=== PATIENT | male | born 1940 | race Caucasian/White ===

== ENCOUNTER → 2019-06-25 16:21 | Outpatient (CLI) | payer MEDICARE, BC ==
[2019-06-25 16:47] LABS: HEMATOCRIT 46.7 % (42.0-54.0); HEMOGLOBIN 16.4 g/dL (13.5-17.5); LYMPHOCYTES 29.6 % (15-50); MCH 33.4 pg (26.0-34.0); MCHC 35.1 g/dL (31.0-37.0); MCV 95.1 fL (80.0-100.0); NEUTROPHILS 60.8 % (40-80); PLATELET COUNT 148 10x3/uL (130-400); RBC 4.91 10x6/uL (4.20-6.10); RDW 14.1 % (11.5-14.5); WBC 5.9 10x3/uL (4.8-10.8)
[2019-06-25 17:51] LABS: ERYTHROCYTE SEDIMENTATION RATE 2 mm/hr (0-20)
== END | disposition home or self-care (01) ==
LOC: D.LABREF 16:21
PROVIDERS: ATTEND Clinical Nurse Specialist Family Health
DX: M25.561 Pain in right knee (principal)

== ENCOUNTER 2019-06-26 10:31 | Inpatient (IN) | payer MEDICARE, BC ==
[~2019-06-26] VITALS: Ht 175.3 cm; Wt 97.5 kg
[2019-07-30] MEDS ORDERED: BREO ELLIPTA 21 EACH (10:26)
[2019-07-30] MEDS ORDERED: VENTOLIN HFA INH (10:28)
[2019-07-30] MEDS ORDERED: RESTORIL15 MG PO (10:28)
[2019-07-30] MEDS ORDERED: NAPROXEN250 MG PO (10:29)
[2019-07-30] MEDS ORDERED: CENTRUM MEN'S1 EACH PO (10:29)
[2019-07-30] MEDS ORDERED: MERIBIN5 MG PO (10:29)
[2019-07-30] MEDS ORDERED: ACETAMINOPHEN325 MG PO (10:29)
[2019-07-30] MEDS ORDERED: APPLE CIDER VINEGAR PO (10:30)
[2019-07-30] MEDS ORDERED: TUMERIC CURCUMIN PO (10:30)
[2019-07-30] MEDS ORDERED: GLUCOSAMINE HC500 MG PO (10:31)
[2019-07-30] MEDS ORDERED: CHONDROITIN PO (10:31)
[2019-07-30] MEDS ORDERED: CLARITIN 10 MG10 MG PO (10:31)
[2019-07-30 12:01] LABS: BASOPHILS 0.8 % (0-2); EOSINOPHILS 3.9 % (0-7); HEMATOCRIT 50.1 % (42.0-54.0); HEMOGLOBIN 17.2 g/dL (13.5-17.5); IMMATURE GRANULOCYTES 0.3 % (0-5); LYMPHOCYTES 27.3 % (15-50); MCH 33.7 pg (26.0-34.0); MCHC 34.3 g/dL (31.0-37.0); MEAN PLATELET VOLUME 10.1 fL (7.4-10.4); MONOCYTES 9.1 % (2-11); NEUTROPHILS 58.6 % (40-80); PLATELET COUNT 166 10x3/uL (130-400); RBC 5.11 10x6/uL (4.20-6.10); RDW 13.3 % (11.5-14.5); WBC 7.9 10x3/uL (4.8-10.8)
[2019-07-30 12:13] LABS: CALC OSMOLALITY 287 mosm/kg (275-300); CALCIUM 9.3 mg/dL (8.5-10.1); CARBON DIOXIDE 31.9 mmol/L (21.0-32.0); CHLORIDE - SERUM 105 mmol/L (98-107); POTASSIUM - SERUM 4.5 mmol/L (3.5-5.1); SODIUM 143 mmol/L (136-145); UREA NITROGEN 26 mg/dL (7-18); eGFR NON AFRICAN AMERICAN 77 mL/min (90-120)
[2019-07-30 12:16] LABS: GLUCOSE 60 mg/dL (74-106)
[2019-07-30 12:19] LABS: APTT 29.7 SECONDS (22.8-39.4); INR 0.96 (0.85-1.17); PROTIME 12.8 SECONDS (11.6-15.0)
[2019-07-30 12:39] LABS: APPEARANCE CLEAR (CLEAR); COLOR DK YELLOW (YELLOW); GLUCOSE 500 mg/dL (NEGATIVE); KETONE SMALL mg/dL (NEGATIVE); NITRITE NEGATIVE (NEGATIVE); PROTEIN TRACE mg/dL (NEGATIVE); SPECIFIC GRAVITY 1.025 (1.005-1.020)
[2019-07-30 12:40] LABS: BACTERIA FEW /hpf (NEGATIVE); BILIRUBIN NEGATIVE (NEGATIVE); EPITHELIAL CELLS OCC /hpf (0-5); RED CELLS - URINE NONE SEEN /hpf (0-5); WHITE CELLS - URINE 0-5 /hpf (NEGATIVE)
[2019-08-04 10:10] VITALS: BP 142/78; Ht 175.3 cm; Wt 97.5 kg
[2019-08-04 10:24] LABS: APPEARANCE CLEAR (CLEAR); COLOR YELLOW (YELLOW)
[2019-08-04 10:25] LABS: BILIRUBIN NEGATIVE (NEGATIVE); GLUCOSE NEGATIVE (NEGATIVE); KETONE NEGATIVE (NEGATIVE); NITRITE NEGATIVE (NEGATIVE); PROTEIN NEGATIVE (NEGATIVE); UROBILINOGEN NORMAL (NORMAL)
[2019-08-04 10:29] LABS: BACTERIA FEW /hpf (NEGATIVE); EPITHELIAL CELLS NSEEN /hpf (0-5); RED CELLS - URINE NONE SEEN /hpf (0-5); WHITE CELLS - URINE 0-5 /hpf (NEGATIVE)
--- NOTE | 2019-08-04 10:39 | NUR ---
SURGERY CANCELLED PER DR. BACA. IV DC'D WITH TIP INTACT.
== END 2019-08-04 10:40 | disposition home or self-care (01) | DRG 561 ==
LOC: D.SDCHOLD 08-04 08:15
PROVIDERS: ADMIT Orthopaedic Surgery; ATTEND Orthopaedic Surgery
DX: T84.032A Mechanical loosening of internal right knee prosthetic joint, initial encounter (principal); M25.561 Pain in right knee; M25.562 Pain in left knee; Z53.9 Procedure and treatment not carried out, unspecified reason

== ENCOUNTER 2019-09-18 10:46 | Day surgery (SDC) | payer MEDICARE, BC ==
[2019-09-16 09:32] LABS: HEMATOCRIT 48.2 % (42.0-54.0); HEMOGLOBIN 16.5 g/dL (13.5-17.5); MCH 33.6 pg (26.0-34.0); MCHC 34.2 g/dL (31.0-37.0); MCV 98.2 fL (80.0-100.0); MEAN PLATELET VOLUME 10.2 fL (7.4-10.4); RBC 4.91 10x6/uL (4.20-6.10); RDW 13.4 % (11.5-14.5); WBC 7.2 10x3/uL (4.8-10.8)
[~2019-09-18] VITALS: Ht 175.3 cm; Wt 96.6 kg
[2019-09-18 09:23] VITALS: BP 137/94; Ht 175.3 cm; Wt 96.6 kg
[~2019-09-18 10:46] MED LIST: ACETAMINOPHEN325 MG PO; AMOXICILLIN500 M1 PO; APPLE CIDER VINEGAR PO; BREO ELLIPTA 21 EACH; CENTRUM MEN'S1 EACH PO; CHONDROITIN PO; CIPRO500 MG PO; CLARITIN 10 MG10 MG PO; GLUCOSAMINE HC500 MG PO; MERIBIN5 MG PO; NAPROXEN250 MG PO; RESTORIL15 MG PO; TUMERIC CURCUMIN PO; VENTOLIN HFA INH
--- NOTE | 2019-09-18 19:10 | NUR ---
1126-REC'D FROM SURGERY. DROWSY EASILY AROUSED. DENIES PAIN. VSS. IV PATENT TO RIGHT ARM AT O. REVIEWED DISCHARGE CRITERIA. CL IN EASY REACH
--- NOTE | 2019-09-18 19:15 | NUR ---
1330-2 WAY 26 FR DIAZ PATENT DRAINING ISBELL RED URINE BY GRAVITY. VSS. PAIN 11/29. VSS. CL IN EASY REACH. IV PATENT AT O
--- NOTE | 2019-09-18 19:15 | NUR ---
1215-B AND O SUPPOSITORY PER RECTUM PER MD ORDERS.
--- NOTE | 2019-09-18 19:17 | NUR ---
1600-REMOVED IV FROM RIGHT ARM WITH CATH INTACT,DISPOSED INTO SHARPS. COVERED SITE WITH GUAZE,SECURED WITH MEDIPORE TAPE
--- NOTE | 2019-09-18 19:17 | NUR ---
1533-NORCO 5/325MG 1 BY MOUTH FOR PAIN
--- NOTE | 2019-09-18 19:18 | NUR ---
1614-REVIEWED POST OPERATIVE INSTRUCTIONS,DIAZ CARE AND FOLLOW UP APPOINTMENT. VERBALIZED UNDERSTANDING
--- NOTE | 2019-09-18 19:19 | NUR ---
1629-ESCORTED OUT VIA W/C WITH DAUGHTER AND LAW AWAITING TO DRIVE HOME
--- NOTE | 2019-09-19 09:16 | OP ---
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 IPSS equals 4. Quality of life equals 2. SARABJIT 40 gram prostate. PROCEDURE: UroLift times 7 units deployed with 6 holding. FINDINGS: Bilateral lateral lobe obstruction with a tight bladder neck. Single ureteral orifices bilaterally. Inflamed bladder mucosa from previous cystitis. No bladder tumors. ESTIMATED BLOOD LOSS: Minimal. CLINICAL HISTORY: This is a 79-year-old male referred by Dr. Fleming for recurrent urinary tract infections. His urine is growing enterococcus. He is due to have right knee replacement surgery, but this cannot be done with his urinary tract infections. He has obstructive BPH. He comes now to have the UroLift procedure done. He is not allergic to any medications. He was given Levaquin IV taxonomist to the OR. DESCRIPTION OF PROCEDURE: The patient was given IV sedation. He was placed in the lithotomy position. The scope was introduced and no penile urethral strictures were seen. He does have obstructive lateral lobes as well as a tight bladder neck. A 1.5 cm distal to the bladder neck at the anterolateral sulcus, I attempted to put one unit on the left side. This unit did not seem to fire. It was discarded and another unit was fired in this position and it helped. Another unit was used in the right anterolateral sulcus 1.5 cm distal to the bladder neck. Then, we went to the verumontanum and placed 1 unit on each side at the anterolateral sulcus. There was still obstruction around the bladder neck. At the mid urethral level looking anterior to posterior, 1.5 cm to the bladder neck distal to the bladder neck, I fired 1 unit on each side. This opened up the bladder neck in the box configuration. The prostate is extremely vasculature. I placed a Sensor wire into the bladder, and over the wire, we inserted a 16-[place] Valdez catheter with a little shell tribe tip. Once the Valdez catheter balloon was inflated with 10 cc of sterile water, we removed the wire entirely. The Valdez catheter was put to bag drainage. I will see him in followup next week to remove the Valdez catheter for a voiding trial. TRANSINT:[id number] Voice Confirmation ID: [id number] DOCUMENT ID: [id number] OPERATIVE REPORT [id number] NICK ESTRADA, CAROLYN Lim MD at 0916 CC: [id number] DICTATION DATE: 09/18/19 1127 TECH ED TEACHER: 09/18/19 1849 [facility] 09/18/19 [place] [id number]
== END 2019-09-18 16:30 | disposition home or self-care (01) ==
LOC: D.OPS 10:46 → D.PAN 11:05 → D.OPS 11:05 → D.PAN 11:30 → D.OPS 16:30
PROVIDERS: Anesthesiology; ATTEND Urology
DX: N40.1 Benign prostatic hyperplasia with lower urinary tract symptoms (principal); N13.8 Other obstructive and reflux uropathy; Z87.440 Personal history of urinary (tract) infections; J45.909 Unspecified asthma, uncomplicated; N30.90 Cystitis, unspecified without hematuria; I10 Essential (primary) hypertension; K21.9 Gastro-esophageal reflux disease without esophagitis

== ENCOUNTER → 2020-03-31 19:54 | Outpatient (CLI) | payer MEDICARE, BC ==
[2019-09-18 09:23] VITALS: BMI 31.5
== END | disposition home or self-care (01) ==
LOC: D.LABREF 19:54
PROVIDERS: ATTEND Orthopaedic Surgery
DX: M17.11 Unilateral primary osteoarthritis, right knee (principal)